=== PATIENT | male | born 1955 | race Caucasian/White ===

== ENCOUNTER 2016-12-09 17:51 | Inpatient (IN) | payer MEDICARE, SELFPAY ==
[~2016-12-09] VITALS: Ht 170.2 cm; Wt 196.5 kg
--- NOTE | 2016-12-10 10:04 | NUR ---
0830 - PATIENT C/O ANXIETY. XANAX 0.5 MG PO ADMINISTERED.
--- NOTE | 2016-12-10 16:49 | NUR ---
1445 - PATIENT C/O ANXIETY. XANAX 0.5 MG PO ADMINISTERED.
--- NOTE | 2016-12-13 13:40 | NUR ---
0930 - PATIENT C/O ANXIETY. XANAX 0.5 MG PO ADMINSTERED.
--- NOTE | 2016-12-14 10:59 | NUR ---
0945 - PATIENT C/O ANXIETY. XANAX 0.5 MG PO ADMINISTERED.
--- NOTE | 2016-12-18 10:12 | NUR ---
1000: PT WEIGHED STANDING UP ON WHEELCHAIR SCALES, WAS 486.8; NOTIFIED MD AND PA DURING MORNING MEETING WAS INCREASED FROM ADMITTING WEIGHT WHICH WAS 431 ON BED SCALES.
== END 2016-12-31 16:39 | disposition home or self-care (01) | DRG 292 ==
LOC: SWI 17:51
PROVIDERS: ADMIT Internal Medicine
DX: I11.0 Hypertensive heart disease with heart failure (principal); J96.11 Chronic respiratory failure with hypoxia; Z68.44 Body mass index [BMI] 60.0-69.9, adult; N39.0 Urinary tract infection, site not specified; I50.32 Chronic diastolic (congestive) heart failure; Z99.81 Dependence on supplemental oxygen; I89.0 Lymphedema, not elsewhere classified; E66.01 Morbid (severe) obesity due to excess calories; R33.9 Retention of urine, unspecified; B95.1 Streptococcus, group B, as the cause of diseases classified elsewhere; E11.9 Type 2 diabetes mellitus without complications; N50.89 Other specified disorders of the male genital organs; N31.9 Neuromuscular dysfunction of bladder, unspecified; F41.9 Anxiety disorder, unspecified; I87.8 Other specified disorders of veins; G89.4 Chronic pain syndrome; N40.1 Benign prostatic hyperplasia with lower urinary tract symptoms; N39.498 Other specified urinary incontinence; N32.89 Other specified disorders of bladder; G47.33 Obstructive sleep apnea (adult) (pediatric); Z90.49 Acquired absence of other specified parts of digestive tract; Z80.1 Family history of malignant neoplasm of trachea, bronchus and lung; Z84.89 Family history of other specified conditions; Z79.899 Other long term (current) drug therapy
CPT/HCPCS: 97163-GP; 97166; J0696; J1650; J2704; Q9967

== ENCOUNTER → 2016-12-12 | Day surgery (SDC) | payer SELFPAY, MEDICARE | END | disposition home or self-care (01) | LOC: SDC 12:00 | DX: N40.1 Benign prostatic hyperplasia with lower urinary tract symptoms (principal); R39.14 Feeling of incomplete bladder emptying; R32 Unspecified urinary incontinence; N32.89 Other specified disorders of bladder; E66.01 Morbid (severe) obesity due to excess calories; I11.0 Hypertensive heart disease with heart failure; I50.32 Chronic diastolic (congestive) heart failure; I87.8 Other specified disorders of veins; I89.0 Lymphedema, not elsewhere classified; G47.30 Sleep apnea, unspecified; J96.10 Chronic respiratory failure, unspecified whether with hypoxia or hypercapnia; K21.9 Gastro-esophageal reflux disease without esophagitis; G89.4 Chronic pain syndrome; M19.90 Unspecified osteoarthritis, unspecified site; F41.9 Anxiety disorder, unspecified; Z68.44 Body mass index [BMI] 60.0-69.9, adult; Z80.1 Family history of malignant neoplasm of trachea, bronchus and lung; Z88.6 Allergy status to analgesic agent; Z88.8 Allergy status to other drugs, medicaments and biological substances; Z90.49 Acquired absence of other specified parts of digestive tract | CPT/HCPCS: C1758 ==

== ENCOUNTER → 2016-12-26 | Day surgery (SDC) | payer MEDICARE, SELFPAY | END | disposition home or self-care (01) | LOC: SDC 08:00 | DX: N40.1 Benign prostatic hyperplasia with lower urinary tract symptoms (principal); R39.14 Feeling of incomplete bladder emptying; E66.01 Morbid (severe) obesity due to excess calories; R33.9 Retention of urine, unspecified; I50.32 Chronic diastolic (congestive) heart failure; I89.0 Lymphedema, not elsewhere classified; I87.8 Other specified disorders of veins; G89.4 Chronic pain syndrome; F41.9 Anxiety disorder, unspecified ==